=== PATIENT | female | born 1990 | race Two or more races ===

== ENCOUNTER 2016-10-24 18:17 | Outpatient (CLI) | payer OTHER ==
[2016-10-24 18:52] VITALS: BMI 35.5
--- NOTE | 2016-10-24 19:46 | US ---
BIOPHYSICAL PROFILE HISTORY: Polyhydramnios. COMPARISONS: 10/22/2016. FINDINGS: Ultrasonography demonstrates a single live intrauterine gestation in cephalic position. A heart rate of 138 bpm is noted. The biophysical profile demonstrates a score of 8/8. The amniotic fluid volume is within normal measured at 18.26 cm. Incidental note is made of a small amount of low echogenicity fluid suggested within the pericardium adjacent to the apex. IMPRESSION: 1. A single live intrauterine gestation in cephalic position. 2. A biophysical profile demonstrating a score of 8/8. 3. A four-quadrant amniotic fluid index currently measuring 18.3 cm. 4. A questionable small focus of pericardial fluid in the region of the cardiac apex. The findings were discussed with Negrita Sun at 1942 hours.
== END 2016-10-24 18:58 | disposition home or self-care (01) ==
LOC: FBCOUT 18:17 → FBC 18:18 → FBCOUT 18:58
PROVIDERS: ATTEND Licensed Practical Nurse
DX: O40.3XX0 Polyhydramnios, third trimester, not applicable or unspecified (principal); O09.41 Supervision of pregnancy with grand multiparity, first trimester; Z3A.33 33 weeks gestation of pregnancy

== ENCOUNTER 2016-11-25 19:42 | Outpatient (CLI) | payer OTHER ==
[2016-11-25 19:58] VITALS: BMI 35.5
[2016-11-25] MEDS ORDERED: DOCUSATE SODIUM 100 MG CAPSULE PO ONE (20:33)
== END 2016-11-25 22:00 | disposition home or self-care (01) ==
LOC: FBCOUT 19:42 → FBC 19:42 → FBCOUT 22:00
PROVIDERS: ATTEND Advanced Practice Midwife
DX: O26.899 Other specified pregnancy related conditions, unspecified trimester (principal); Z3A.00 Weeks of gestation of pregnancy not specified
CPT/HCPCS: 59025; A9270; G0463

== ENCOUNTER 2016-12-11 14:17 | Inpatient (IN) | payer OTHER ==
[2016-12-11] MEDS ORDERED: LACTATED RINGERS 1,000 ML ONE ×2 (19:23→20:26)
[2016-12-11] MEDS ORDERED: IV START KIT ONE ×2 (19:23→20:26)
[2016-12-11] MEDS ORDERED: SODIUM CHLORIDE 0.9% FLUSH 10 ML ONE (19:24)
[2016-12-11] MEDS ORDERED: OXYTOCIN 10 UNITS/ML VIAL IM ONE (20:01)
[2016-12-11] MEDS ORDERED: OXYTOCIN IN LR 500 ML IV ONE ×2 (20:01→20:27)
[2016-12-11] MEDS ORDERED: PENICILLIN G POTASSIUM 5 MMU in NS 0.9% (MINI-BAG PLUS) 100 ML IV ONE (20:15)
[2016-12-11 20:19] VITALS: BMI 37.4
[2016-12-11] MEDS ORDERED: OXYTOCIN 10 UNITS/ML VIAL ONE (20:26)
[2016-12-11] MEDS ORDERED: LIDOCAINE Viscous 2% 15 ML UDCUP ONE (20:26)
[2016-12-11] MEDS ORDERED: LIDOCAINE 1% (PRES FREE) 30 ML VIAL ONE (20:26)
[2016-12-11] MEDS ORDERED: PUMP TUBING ONE (20:26)
[2016-12-11] MEDS ORDERED: EPIDURAL PUMP SET ONE (20:26)
[2016-12-11] MEDS ORDERED: MINERAL OIL 25 ML BOT ONE (20:26)
[2016-12-11] MEDS ORDERED: FENTANYL/ROPIVACAINE EPIDURAL 250 ML EP ONE (20:27)
[2016-12-11] MEDS ORDERED: PENICILLIN G POTASSIUM 5 MMU VIAL ONE (20:32)
[2016-12-11] MEDS ORDERED: NS 0.9% (MINI-BAG PLUS) 100 ML IV ONE (20:32)
[2016-12-11] MEDS: LACTATED RINGERS 1,000 ML IV SCH ×3 (20:38→22:45)
[2016-12-11 20:43] LABS: HEMATOCRIT 34.7 % (37.0-47.0); HEMOGLOBIN 10.9 gm/l (12.0-16.0); MEAN CELL VOLUME 82.2 fl (81.0-99.0); MEAN CORPUSCULAR HEMOGLOBIN 25.8 pg (27.0-31.0); MEAN CORPUSCULAR HGB CONC 31.4 g/dl (33.0-37.0); RED CELL DISTRIBUTION WIDTH 17.1 % (11.5-14.5)
[2016-12-11] MEDS ORDERED: EPIDURAL PROCEDURE TRAY ONE (21:06)
[2016-12-11] MEDS ORDERED: BUPIVACAINE 0.25% (PRES FREE) 30 ML VIAL ONE (21:06)
[2016-12-11] MEDS: FENTANYL/ROPIVACAINE EPIDURAL 250 ML EP SCH (21:30)
[2016-12-11] MEDS ORDERED: NALBUPHINE HCL 20 MG/ML AMP IV PRN (21:56)
[2016-12-11] MEDS ORDERED: DIPHENHYDRAMINE HCL 50 MG/1 ML VIAL IV PRN (21:56)
[2016-12-11] MEDS ORDERED: EPHEDRINE SULFATE 50 MG/ML 1ML VIAL IV PRN (21:56)
[2016-12-11] MEDS ORDERED: SODIUM CHLORIDE 0.9% 500 ML IV PRN (21:56)
[2016-12-11] MEDS ORDERED: NALOXONE HCL 0.4 MG/ML VIAL IV PRN (21:56)
[2016-12-11] MEDS ORDERED: ONDANSETRON 4 MG/2ML 2 ML VIAL IV PRN (21:56)
[2016-12-11] MEDS ORDERED: METOCLOPRAMIDE HCL 5 MG/ML 2ML VIAL IV PRN (21:56)
[2016-12-11] MEDS ORDERED: LACTATED RINGERS 500 ML IV PRN (21:56)
--- NOTE | 2016-12-11 22:11 | PCMAN ---
OB Admission Note - History : 8 Term: 6 : 0 Abortions (S&E): 1 Livin EDC:: 12/11/16 Gestational Age (weeks): 40 Admit Cervical Dilation:: 6 Admit Cervical Effacement (%):: 80 Admit Station:: -3 Admit Presentaton:: vertex Membrane Status: Intact Contractions: Yes Contraction Frequency:: 3 mins Heart Rate:: 130 Status:: Cat 1 EFW:: 8lbs Summary of Course:: Mi is here for an induction of labor per recommendation of MFM. She intially saw them for a concern regarding pericardial effusions that were thought to have been seen on UN. However, upon further assessment by MFM, none were found. An incidental finding of polyhydramnios was noted and she was subsequently followed for the rest of her for this. Her last measurement on 12/10 was 24cms. She was seen in clinic on 12/10 for bloody show and found to be 3/40/-2. Upon admit this evening at 7:45pm she was 6/80/ballotable with a bag forming around the head. Mi states she has been having ctxs since yesterday. Since she is GBS positive the PCN will be started before any further induction methods are initiated. The patient may or may not require pitocin at this time given she is having ctxs every 3 mins. Mi initiated care at 19 weeks. Her weight was 219lbs and she is now 217lbs. Her care has been complicated by micorcytic anemia, polyhydramnios and obesity. Her OB hx includes grand multiparity and a hx of PPH. Current medications include PNV and she received IV iron infusions for her anemia. She is accompanied by her and son. She desires a tubal ligation after delivery. - Labs Blood Type: O (+) positive Hct/Hgb:: 11.4 Rubella Status: Immune GBS Status: Positive - Physical Exam Psych/Mental Status: Mood/Affect Appropriate Neurological: Grossly Intact, Alert, Oriented x 4 Cardiovascular: Regular Rate and Rhythm Abdomen: Normal Bowel Sounds Genitourinary: Normal Female Genitalia Rectal Exam: Deferred Extremities: Full ROM Skin: Normal Color, Warm, Dry, Intact - Problems (1) Normal labor Status: Acute Code: [id number]/Plan: A/ at 40 weeks with polyhydramnios for induction of labor Regular uterine contractions on admit Ram score 10 Beginning of active labor GBS positive Cat 1 FHR Anemia of P/ Initiate PCN prophylaxis Start pitocin after PCN has started, if patient's contractions slow Epidural per patient request Active management of labor for hx of PPH Plan on BTL after delivery (2) Polyhydramnios affecting Status: Acute Code: O40.7RD6Fasrjgxefc/Plan: A/ at 40 weeks today with polyhydramnios at 24 cms on 12/10 P/ Induction of labor per [facility] recommendation (3) Group B streptococcal infection Status: Acute Code: A49.1Assessment/Plan: A/ GBS positive P/ Initiate GBS prophylaxis
--- NOTE | 2016-12-11 23:53 | PCMDEL ---
Delivery Note - Labor 1st stage (hr/min):: 7 hours and 15 mins 2nd stage (hr/min):: 15 mins 3rd stage (hr/min):: 6 mins Pushed (hr/min):: 15 mins - Delivery Delivery (Date): 12/11/16 Delivery (Time): 23:15 Infant Gender: Female Position: OA Umbilical Cord: 3 Vessel Delayed Cord Clamping:: > 3 min 1 Minute Total: 9 5 Minute Total: 9 Placenta:: Intact, zarate EBL:: 300mls Perineum:: Intact Suture:: none Anesthesia/Meds:: Epidural Length ROM:: 1 min Comments:: Vaginal Delivery Note: Stage I: Patient is a 26 year-old with an MORTEZA of 12/11/16 who presents to L&D at 40 weeks and 0 days gestation for an IOL for poly. Her care has been complicated by microcytic anemia and polyhydramnios. Her GBS screen was Positive. Penicillin was used for GBS prophylaxis. The patient was admitted on 12/11/16 at 18:59. Active labor was present on admit. Patient was here for an IOL for poly but she was nasra regularly and found to be 6/80/ballotable. She was admitted and GBS prophylaxis started. Induction methods were not required. She progressed to being complete by 23:00 hours. Membranes ruptured on 12/11/16 at 23:14 for clear fluid. Induction/augmentation agents: AROM heart rate tracing revealed category 1 tracing. She was complete at 23: 00. Anesthesia: Epidural Stage II: Second stage was approximately 15 minutes in duration. She began pushing at 23: 00hrs. The head began to descend onto the pelvic floor. With patient consent her bag was AROM'd and with the next push the head presented. She went on to have a spontaneous vaginal delivery vertex; baby OA, no nuchal cord. Remainder of baby delivered without complications. No shoulder dystocia evident. An episiotomy was not performed. Delayed cord clamping of > one minute undertaken. A female baby was born at 23:15. Birthweight was pending. scores were 9 at one minute and 9 at five minutes. Stage III: Third stage was normal with spontaneous vaginal delivery of an intact placenta with a 3 vessel cord with central cord insertion. Her perineum and vagina were inspected and no laceration was noted. This was repaired with vicryl 3-0 in usual fashion under local anesthesia. At the conclusion of the delivery the sponge and the needle count were correct. Estimated blood was 300 ml. Uterus firmed up nicely. Active management of third stage of labor was initiated due to multiparty, anemia and hx of PPH. Patient desires a BTL and will be NPO 8 hours prior. At this time we are planning for a late Thursday afternoon tubal. Complications: Polyhydramnios with unknown etiology, only 1 dose of IV antibiotics were given (at 8:30pm). Good amount of vernix present on the baby.
[2016-12-12] MEDS ORDERED: IBUPROFEN 800 MG TABLET PO ONE (03:40)
[2016-12-12] MEDS ORDERED: ACETAMINOPHEN 325 MG TABLET PO PRN (05:53)
[2016-12-12] MEDS ORDERED: OXYCODONE HCL 5 MG TABLET PO PRN (05:53)
[2016-12-12] MEDS ORDERED: LANOLIN 50 APPLIC/7G TUBE TP PRN ×2 (05:53→18:42)
[2016-12-12] MEDS ORDERED: BENZOCAINE/MENTHOL 60 APPLIC/BOT TP PRN ×2 (05:53→18:42)
[2016-12-12] MEDS ORDERED: HYDROCODONE/ACETAMINOPHEN 5/325MG TABLET PO PRN (05:53)
[2016-12-12] MEDS ORDERED: DOCUSATE SODIUM 100 MG CAPSULE PO PRN ×2 (05:53→18:42)
[2016-12-12] MEDS: OXYCODONE/ACETAMINOPHEN 5/325 MG TABLET PO PRN ×3 (06:01→21:15)
[2016-12-12] MEDS ORDERED: LACTATED RINGERS 1,000 ML ONE ×2 (06:07→15:28)
[2016-12-12 07:32] LABS: ABSOLUTE NEUTROPHIL COUNT 3.9 K/mm3 (1.8-7.7); BASO % 0.4 % (0.2-1.0); EOS % 0.5 % (0.9-2.9); HEMATOCRIT 29.5 % (37.0-47.0); HEMOGLOBIN 9.3 gm/l (12.0-16.0); IMM NEUT% 0.3 % (0-1); LYMPH # 2.9 (1.0-4.8); LYMPH % 39.4 % (15-45); MEAN CELL VOLUME 81.9 fl (81.0-99.0); MEAN CORPUSCULAR HEMOGLOBIN 25.8 pg (27.0-31.0); MEAN CORPUSCULAR HGB CONC 31.5 g/dl (33.0-37.0); MEAN PLATELET VOLUME 11.7 fl (7.4-10.4); MONO # 0.5 (0.0-0.8); MONO % 6.6 % (4-12); NEUT % 52.8 % (43-75); PLATELET COUNT 153 K/mm3 (130-400)
[2016-12-12] MEDS: LACTATED RINGERS 1,000 ML IV SCH (07:38)
[2016-12-12] MEDS: FENTANYL/ROPIVACAINE EPIDURAL 250 ML EP SCH (07:38)
[2016-12-12] MEDS: PENICILLIN G 3 MIL UNIT PREMIX 3 MMU in Premix (D5W) 50 ml 1 EACH IV SCH ×2 (07:38→07:39)
[2016-12-12] MEDS ORDERED: IBUPROFEN 800 MG TABLET PO SCH (12:00)
--- NOTE | 2016-12-12 15:12 | PDOC44 ---
- Subjective Day: 1 Patient feels well. Reports infant is well. Ready to have tubal. Is ambulating well. She denies any lightheadedness or dizziness. Plans to DC to home tomorrow. Reports Flatus, Reports Pain Tolerable, Reports , Reports Lochia Moderate, Reports Tolerating Regular Diet (has been NPO since breakfast in prep for surgery) - Objective Temp Pulse Resp BP Pulse Ox 97.9 F 60 16 106/58 12/12/16 08:00 12/12/16 08:00 12/12/16 08:00 12/12/16 08:00 Lab Results 12/12/16 12/11/16 07:15 19:45 WBC 7.3 7.3 RBC 3.60 L 4.22 Hgb 9.3 L 10.9 L Hct 29.5 L 34.7 L Plt Count 153 144 12/12/16 12/11/16 07:15 19:45 MCH 25.8 L 25.8 L MCHC 31.5 L 31.4 L RDW 17.0 H 17.1 H Eosinophils % 0.5 L Current Medications Generic Name Dose Route Start Last Admin Trade Name Freq PRN Reason Stop Dose Admin Acetaminophen 325 - 650 mg 12/12/16 05:53 Tylenol PO Q4H PRN Pain (Mild) Acetaminophen/Hydrocodone Bitart 1 - 2 tab 12/12/16 05:53 [place] 5/325 PO Q4H PRN Pain (Moderate) Benzocaine/Menthol 1 applic 12/12/16 05:53 Dermoplast TP PRN PRN Patient Comfort Docusate Sodium 100 mg 12/12/16 05:53 12/12/16 10:18 Colace PO 100 mg DAILY PRN Administration Comfort Emollient Ointment 1 applic 12/12/16 05:53 Ytd-L-Kparkz TP PRN PRN sore nipples Ibuprofen 800 mg 12/12/16 12:00 Motrin PO Q8H BASHIR Oxycodone HCl 5 - 10 mg 12/12/16 05:53 Roxicodone PO Q3H PRN Pain (Severe) Oxycodone/Acetaminophen 1 - 2 tab 12/12/16 05:53 12/12/16 10:29 Percocet 5/325 PO 1 tab Q4H PRN Administration Pain (Moderate) Sodium Chloride 10 ml 12/12/16 05:53 Normal Saline 10ml Flush IV PRN PRN IV Flush - Physical Exam General: Afebrile Psych/Mental Status: Mood/Affect Appropriate, Judgment/Insight Intact, Bonding Well Neurological: Grossly Intact, Alert, Oriented x 4 HEENT: Atraumatic Lungs: Clear to Auscultation Bilaterally, Normal Air Movement Cardiovascular: Regular Rate and Rhythm, Normal S1, Normal S2 Breast: Skin intact, Nipples Intact Fundus: Firm, Midline, Below Umbilicus Genitourinary: Normal Female Genitalia Lochia: Light Rectal Exam: Deferred Extremities: Full ROM Skin: Normal Color - Problems:Assessment/Plan (1) care following vaginal delivery Status: AcuteAssessment/Plan: A: Normal PP recovery Lochia appropriate VSS Anemic P: BTL this afternoon with Dr. Tejeda Start taking Fe supplements Plan to DC to home care tomorrow Disposition: Anticipate DC Home Tomorrow
[2016-12-12] MEDS ORDERED: LACTATED RINGERS 1,000 ML IV SCH (15:45)
[2016-12-12] MEDS ORDERED: LIDOCAINE 2%/EPI (PRES FREE) 20 ML VIAL ONE (16:48)
[2016-12-12] MEDS ORDERED: FENTANYL 100 MCG/2 ML VIAL ONE (16:48)
[2016-12-12] MEDS ORDERED: MIDAZOLAM HCL 5 MG/5 ML VIAL ONE (16:48)
--- NOTE | 2016-12-12 17:12 | PDOC36 ---
Provider Note Subject: Reviewed tubal with patient who again confirmed she was done with childbearing. Procedure reviewed. Consents obtained. Anesthesia notified.
[2016-12-12] MEDS ORDERED: MORPHINE SULFATE (DURAMORPH) 1 MG/ML 10ML AMP ONE (17:24)
[2016-12-12] MEDS ORDERED: PROPOFOL 20 ML IV ONE (17:31)
[2016-12-12] MEDS ORDERED: KETOROLAC TROMETHAMINE 30 MG/ML 1 ML VIAL ONE (17:32)
[2016-12-12] MEDS ORDERED: SPINAL PROCEDURAL TRAY 1 EACH ONE (17:34)
[2016-12-12] MEDS ORDERED: BUPIVACAINE 0.75% SPINAL AMPUL 2 ML ONE (17:34)
[2016-12-12] MEDS ORDERED: EPHEDRINE SULFATE 50 MG/ML 1ML VIAL ONE (18:26)
[2016-12-12] MEDS ORDERED: LACTATED RINGERS 1,000 ML IV.SOLN ONE (18:30)
[2016-12-12] MEDS ORDERED: FERROUS GLUCONATE (38 Fe) 324 MG TABLET PO SCH (21:00)
--- NOTE | 2016-12-12 22:47 | OP ---
EMANUEL ROJAS [id number] DATE OF : 1990 DATE OF PROCEDURE: 12/12/2016 PREOPERATIVE DIAGNOSIS: Desires permanent sterilization. POSTOPERATIVE DIAGNOSIS: Desires permanent sterilization. PROCEDURE: BILATERAL TUBAL LIGATION. SURGEON: Dr. Tania Tejeda ANESTHESIA: Spinal. FINDINGS: Normal appearing uterus and Fallopian tubes. CONDITION: Stable. COMPLICATIONS: None. IV FLUIDS: 1,000 mL of lactated Ringer's. ESTIMATED BLOOD LOSS: 5 mL SPECIMENS: Portions of bilateral Fallopian tubes. IMPLANTS: None. DRAINS: None. PROCEDURE: The patient was taken back to the OR with IV fluids running, where spinal anesthesia was easily obtained. She was prepped and draped in a dorsal supine position in a normal sterile fashion. After anesthesia was found to be adequate, an approximately two inch infraumbilical incision was made. The incision was carried-down to the fascia with Metzenbaum scissors. The fascia was elevated and entered sharply. An Abdifatah retractor was placed in the incision to facilitate visualization. Attention was then turned to the patient's left adnexa. The Fallopian tube was grasped with a [place] clamp and followed-out to its fimbriated end. The isthmic portion of the Fallopian tube was then grasped with a Lucía clamp and an approximately 3 cm segment of Fallopian tube was doubly ligated. The knuckle of the Fallopian tube was then cut with Metzenbaum scissors and the cut ends were cauterized with Bovie electrocautery. This same procedure was performed on the patient's right. The specimens were removed from the operative field. A last look was taken at both operative sites, and again hemostasis was identified. The Abdifatah retractor was removed from the abdomen. The fascia was grasped with a Aubree clamp and 0-Vicryl was used to close the abdominal fascia. The subcutaneous layer was reapproximated with 4-0 Vicryl and the skin was closed with 4-0 Vicryl in a subcuticular fashion. The procedure was then complete. The patient was easily roused from anesthesia and transferred to recovery in stable condition.
[2016-12-13] MEDS: OXYCODONE/ACETAMINOPHEN 5/325 MG TABLET PO PRN ×3 (01:21→13:16)
[2016-12-13] MEDS: IBUPROFEN 800 MG TABLET PO PRN ×2 (03:57→12:53)
[2016-12-13 09:00] VITALS: BP 102/54
[2016-12-13] MEDS ORDERED: FERROUS SULFATE (65 Fe) 325 MG TABLET PO SCH (09:00)
--- NOTE | 2016-12-13 09:54 | PDOC36 ---
Provider Note Subject: Post-op note Note: S: Sore but OK. Wondering about the hernia that the gen surgeon repaired at time of her lap edwin. Discussed. O: incision excellent. No steri-strips. No sign of hernia. No bruising or infection. Normal soreness. Imp: Stable post-op BTL last night. Plan: Routine care. Follow up in office in 1 week.
--- NOTE | 2016-12-13 09:59 | PDOC39B ---
Hospital Course: ADMIT DATE: 12/11/16 DISCHARGE DATE: 12/13/2016 ADMISSION DIAGNOSES: Active Labor PROCEDURES: HISTORY OF PRESENT ILLNESS: 26 year old G8 T6 L6 at 40 weeks 0 days presenting with active labor. HOSPITAL COURSE: The patient is doing well and ready for home. She reports moderate crampng that is managed with Ibuprofen and [place]. Seen by Dr. More this morning for her post-op tubal incision and this is intact. Lochia is minimal. Eating, drinking and voiding. Ambulating around her room. Receiving help with breast feeding. Left breast is sore from poor latch. RN helping with this. Advised f/u with . By day of discharge the patient is stable, well and ready to go home. - Physical Exam Vital Signs: Temp Pulse Resp BP Pulse Ox 98.2 F 59 16 102/54 97 12/13/16 08:50 12/13/16 08:50 12/13/16 08:50 12/13/16 08:50 12/12/16 21:50 General: Afebrile Psych/Mental Status: Mood/Affect Appropriate Neurological: Alert, Oriented x 4 Cardiovascular: Regular Rate and Rhythm Breast: Soft, Tenderness Fundus: Firm Abdomen: Normal Bowel Sounds Genitourinary: Normal Female Genitalia Lochia: Light Rectal Exam: Deferred Extremities: Full ROM Skin: Normal Color, Warm, Dry Wound: Dressing Clean/Dry/Intact, Well Approximated - Discharge Diagnosis (1) Normal labor Status: AcuteAssessment/Plan: A/ at 40 weeks with polyhydramnios for induction of labor Regular uterine contractions on admit Ram score 10 Beginning of active labor GBS positive Cat 1 FHR Anemia of P/ Initiate PCN prophylaxis Start pitocin after PCN has started, if patient's contractions slow Epidural per patient request Active management of labor for hx of PPH Plan on BTL after delivery (2) Polyhydramnios affecting Status: AcuteAssessment/Plan: A/ at 40 weeks today with polyhydramnios at 24 cms on 12/10 P/ Induction of labor per [facility] recommendation (3) Group B streptococcal infection Status: AcuteAssessment/Plan: A/ GBS positive P/ Initiate GBS prophylaxis (4) Normal course Status: AcuteAssessment/Plan: A/ Day 2 s/p vaginal and BTL Incision healing Breast feeding P/ D/C Home today with baby F/U in 7-10 days with F/U in 2 weeks with CNMs as needed - Discharge Plan Condition: Good Disposition: Home Additional Instructions: Midwifery 'After the ' handout given to patient. Prescriptions: Docusate Sodium [COLACE 100 MG CAPSULE (SHF)] 100 mg PO DAILY PRN #30 cap PRN Reason: Constipation Ibuprofen [Motrin] 800 mg PO Q8H PRN #120 tablet PRN Reason: Pain FERROUS SULFATE (65 Fe) [IRON FERROUS SULFATE 325 MG TABLET (SHF)] 325 mg PO BID #60 tab Oxycodone HCl [ROXICODONE 5 MG IR TABLET (SHF)] 5 - 10 mg PO Q6H PRN #30 tab PRN Reason: Pain Follow-Up: Clarice More MD [Staff Physician] - In 7-10 days Adriana Gonzalez CNM [Certified Nurse [employer]] - In 2 weeks
--- NOTE | 2016-12-19 11:33 | SURGPATH ---
[facility] [address] [place] [id number] Patient Name: EMANUEL ROJAS MR#: [id number] : 1990 Gender: F Specimen #: [id number] Collected: 12/12/2016 Received: 12/16/2016 Reported: 12/19/2016 Submitting Phys: PRIMO VYAS Copy To Phys: [facility] RAPHAEL HART, GISELLE WORLEY Clinical History / Pre-Operative Diagnosis: None provided Specimen Source / Surgical Procedure Performed: Right fallopian tube segment (with stitch), left fallopian tube segment Interpretation: FALLOPIAN TUBES, RIGHT AND LEFT, TUBAL LIGATION: - COMPLETE CROSS SECTIONS OF RIGHT AND LEFT FALLOPIAN TUBES Electronically Signed Out By Jaycee Victor M.D. For Eliza Cui M.D. Gross Description: The specimen is received in a formalin filled container labeled with the patient's name and "bilateral fallopian tube segments". Two cylindrical segments of matos tissue are each 1.7 x 0.5 cm. One segment has attached suture and is inked black. A solar sales representative and assessor cross section of each is submitted in cassette "A". An additional section of the inked fallopian tube is submitted in cassette "B". Graham Brown. Microscopic Description: Complete cross-sections of inked and uninked fallopian tubes are seen, without significant pathologic changes. 1: [id number](8) Z30.2
== END 2016-12-13 14:04 | disposition home or self-care (01) | DRG 767 ==
LOC: EDSTATUS 14:17 → FBC 18:59
PROVIDERS: ADMIT Advanced Practice Midwife; ATTEND Advanced Practice Midwife
PROC: 10E0XZZ Delivery of Products of Conception, External Approach (ICD-10-PCS; principal; 2016-12-11)
PROC: 0UL70ZZ Occlusion of Bilateral Fallopian Tubes, Open Approach (ICD-10-PCS; 2016-12-12)
DX: O40.3XX0 Polyhydramnios, third trimester, not applicable or unspecified (principal); O99.824 Streptococcus B carrier state complicating childbirth; O99.02 Anemia complicating childbirth; D64.9 Anemia, unspecified; O09.43 Supervision of pregnancy with grand multiparity, third trimester; Z30.2 Encounter for sterilization; Z37.0 Single live birth; Z3A.40 40 weeks gestation of pregnancy